=== PATIENT | male | born 1945 | race Caucasian/White ===

== ENCOUNTER → 2017-02-24 | Outpatient (CLI) | payer MEDICARE, BC | END | disposition home or self-care (01) | LOC: LABWHC1 07:31 | PROVIDERS: ATTEND Family Medicine | DX: E29.1 Testicular hypofunction (principal); Z53.9 Procedure and treatment not carried out, unspecified reason ==

== ENCOUNTER → 2017-02-25 | Outpatient (CLI) | payer MEDICARE, BC ==
[2017-02-25 08:41] LABS: CH 28.3; CHCM 33.6; HCT 48.8 % (39.0-53.0); HDW 3.11; HGB 16.6 gm/dL (13.0-17.5); MCH 28.9 pg (25.0-35.0); MCHC 34.1 g/dL (31.0-37.0); MCV 84.7 fL (80.0-100.0); Mean Platelet Volume 7.3; RBC 5.76 m/uL (4.30-5.90); RDW 14.1 % (11.5-15.5); WBC 6.5 k/uL (3.8-10.6)
[2017-02-25 11:33] LABS: ALT 37 U/L (21-72); AST 24 U/L (17-59); Alkaline Phosphatase 70 U/L (38-126); Anion Gap 9 mmol/L; Bilirubin, Delta 0.3 mg/dL (0.0-0.2); Blood Urea Nitrogen 16 mg/dL (9-20); Calcium 8.9 mg/dL (8.4-10.2); Carbon Dioxide 27 mmol/L (22-30); Chloride 105 mmol/L (98-107); Cholesterol 187 mg/dL (<200); Glucose 126 mg/dL (74-99); HDL Cholesterol 47 mg/dL (40-60); Non-African American GFR(MDRD) >60 (>60 ml/min/1.73 sqM); Potassium 4.6 mmol/L (3.5-5.1); Sodium 141 mmol/L (137-145); Total Bilirubin 1.1 mg/dL (0.2-1.3); Triglycerides 151 mg/dL (<150)
[2017-02-25 12:06] LABS: Estradiol 47 pg/mL (5-66)
== END ==
LOC: LABWHC1 08:01
PROVIDERS: ATTEND Family Medicine
DX: E29.1 Testicular hypofunction (principal)
CPT/HCPCS: 36415; 80048; 80061; 80076; 82670; 84153; 84403; 85027

== ENCOUNTER → 2018-04-07 | Outpatient (CLI) | payer MEDICARE, BC ==
[2018-04-07 16:42] LABS: Blood Urea Nitrogen 17 mg/dL (9-20)
--- NOTE | 2018-04-08 09:10 | CT ---
EXAMINATION TYPE: CT chest w con DATE OF EXAM: 04/07/2018 COMPARISON: 03/27/2014 HISTORY: Pulmonary fibrosis CT DLP: 499.1 mGycm, Automated exposure control for dose reduction was used. CONTRAST: Performed injected with 100 mL of Isovue 300. TECHNIQUE: Axial images were obtained at 5 mm thick sections. Reconstructed images are reviewed on [employer] computer in the coronal plane. FINDINGS: Portion of the thyroid visualized is normal. There is a 0.4 cm nodule in the periphery of the right upper lobe. Series 4 image 16. This may be at change from prior study. There are increased linear markings at the periphery of the bilateral lungs compatible pulmonary fibrosis. Findings appear to be increasing from 2014. There is a stable 0.3 cm calcification the periphery of the right lower lobe. Multiple small lymph nodes are present within the mediastinum. There is a 1.1 cm pretracheal lymph n ode present is contains a small amount of peripheral calcification. Additional smaller pretracheal pr esent. No suspicious hilar adenopathy is evident. There may be a subcarinal lymph node measuring 0.9 cm. The ascending aorta diameter at the level of the main pulmonary artery is 3.9 cm. The main pulmo nary artery diameter at the bifurcation is 3.2 cm. Small hiatal hernia may be present. Limited CT sections are obtained through the upper abdomen. Abdomen is essentially unremarkable. Air- filled appendix appears to be adjacent to the liver. This is partially visualized. There is partially visualized cyst on the right mid kidney measuring 1.7 cm and 23 Hounsfield units. IMPRESSIONS: 1. Enlarged pretracheal lymph node with additional shotty lymphadenopathy through the mediastinum. 2. Increasing peripheral lung markings can be compatible with worsening pulmonary fibrosis. 3. There may be a new 0.4 cm nodule periphery right upper lobe.
== END | disposition home or self-care (01) ==
LOC: RADCTMAIN 16:12
PROVIDERS: ATTEND Nurse Practitioner Adult Health
DX: J84.10 Pulmonary fibrosis, unspecified (principal); R59.0 Localized enlarged lymph nodes
CPT/HCPCS: 82565; 84520; 71260; 36415; Q9967

== ENCOUNTER → 2018-12-02 | Outpatient (CLI) | payer MEDICARE, BC | LOC: LABPAT 09:48 | PROVIDERS: ATTEND Orthopaedic Surgery Sports Medicine | DX: Z01.812 Encounter for preprocedural laboratory examination (principal) | CPT/HCPCS: 87070 ==

== ENCOUNTER → 2018-12-09 | Outpatient (CLI) | payer MEDICARE, BC ==
[2018-12-09 09:30] LABS: HCT 48.7 % (39.0-53.0); HGB 15.5 gm/dL (13.0-17.5); MCH 27.4 pg (25.0-35.0); MCHC 31.9 g/dL (31.0-37.0); Mean Platelet Volume 7.1; Platelet Count 178 k/uL (150-450); RBC 5.66 m/uL (4.30-5.90); RDW 13.9 % (11.5-15.5); WBC 6.8 k/uL (3.8-10.6)
[2018-12-09 09:31] LABS: Appearance,Urine Clear (Clear); Bilirubin,Urine Negative (Negative); Blood,Urine Negative (Negative); Color,Urine Yellow; Glucose,Urine (UA) 4+ (Negative); Ketones,Urine Negative (Negative); Leukocyte Esterase,Urine Negative (Negative); Nitrite,Urine Negative (Negative); Protein,Urine Negative (Negative); Specific Gravity,Urine 1.027 (1.001-1.035); Urobilinogen,Urine <2.0 mg/dL (<2.0)
[2018-12-09 09:34] LABS: INR 0.9 (<1.2); Partial Thromboplastin Time 25.5 sec (22.0-30.0); Prothrombin Time 9.9 sec (9.0-12.0)
[2018-12-09 09:59] LABS: ALT 22 U/L (21-72); AST 19 U/L (17-59); Albumin 4.2 g/dL (3.5-5.0); Alkaline Phosphatase 76 U/L (38-126); Anion Gap 4 mmol/L; Blood Urea Nitrogen 18 mg/dL (9-20); Calcium 9.5 mg/dL (8.4-10.2); Carbon Dioxide 31 mmol/L (22-30); Chloride 105 mmol/L (98-107); Glucose 113 mg/dL (74-99); Potassium 5.5 mmol/L (3.5-5.1); Sodium 140 mmol/L (137-145); Total Bilirubin 1.1 mg/dL (0.2-1.3); Total Protein 7.1 g/dL (6.3-8.2)
== END | disposition home or self-care (01) ==
LOC: LABPAT 08:25
PROVIDERS: ATTEND Orthopaedic Surgery Sports Medicine
DX: Z01.818 Encounter for other preprocedural examination (principal); Z01.812 Encounter for preprocedural laboratory examination
CPT/HCPCS: 80053; 81003; 85027; 85610; 85730; 93005

== ENCOUNTER 2018-12-28 08:51 | Inpatient (IN) | payer MEDICARE, BC ==
[~2018-12-28 08:51] MED LIST: ACETAMINOPHEN TAB 500 MG TAB PO ONE; DEXAMETHASONE SOD PHOSPHATE 10 MG/ML 1 ML VIAL IV ONE; HYDROmorphone 0.5 MG/0.5 ML SYRINGE IVP PRN; LIDOCAINE 1% 20 ML VIAL (10MG/ML) FOR IV START INTRADERMA PRN; MELOXICAM 7.5 MG TAB PO ONE; MIDAZOLAM (PF) 2 MG/2 ML VIAL IV PRN; ONDANSETRON 4 MG/2 ML VIAL IVP ONE; SCOPOLAMINE 1.5MG/72HR PATCH TRANSDERM ONE; TRANEXAMIC ACID 1,000 MG in SODIUM CHLORIDE 0.9% 100 ML IVPB ONE; ceFAZolin IN SWFI 2 GM/20 ML SYRINGE IVP ONE
[2018-12-28] MEDS ORDERED: ROPIVACAINE 246.25 MG, EPINEPHrine 0.5 MG, KETOROLAC 30 MG, cloNIDine HCL/PF 80 MCG, WA... MISCELLANE ONE ×5 (09:42)
[2018-12-28] MEDS: LACTATED RINGERS 1,000 ML IV SCH ×3 (11:50→20:55)
[2018-12-28 11:52] LABS: Glucose,Whole Blood 98 mg/dL (75-99)
[2018-12-28] MEDS ORDERED: NALOXONE 0.4 MG/ML 1 ML VIAL IV PRN ×2 (12:46→16:03)
[2018-12-28] MEDS ORDERED: HYDROmorphone 0.5 MG/0.5 ML SYRINGE IVP PRN ×3 (12:46)
[2018-12-28] MEDS ORDERED: HYDROcodone/APAP 5-325MG 1 EACH TAB PO PRN ×2 (12:46)
[2018-12-28] MEDS ORDERED: DIAZEPAM 5 MG TAB PO PRN (12:46)
[2018-12-28] MEDS ORDERED: MAGNESIUM HYDROXIDE 2,400 MG/10 ML CUP PO PRN (12:46)
[2018-12-28] MEDS ORDERED: BISACODYL 10 MG SUPP RECTAL PRN (12:46)
[2018-12-28] MEDS ORDERED: NA PHOS,M-B/NA PHOS,DI-BA 133 ML ENEMA RECTAL PRN (12:46)
[2018-12-28] MEDS ORDERED: ACETAMINOPHEN TAB 325 MG TAB PO PRN (12:46)
[2018-12-28] MEDS ORDERED: ONDANSETRON 4 MG/2 ML VIAL IVP PRN (12:46)
[2018-12-28] MEDS ORDERED: hydrOXYzine PAMOATE 25 MG CAP PO PRN (12:46)
[2018-12-28] MEDS ORDERED: HYDROcodone/APAP 10-325MG 1 EACH TAB PO PRN (12:46)
[2018-12-28] MEDS ORDERED: HYDROcodone/APAP 7.5-325MG 1 EACH TAB PO PRN (12:46)
[2018-12-28] MEDS ORDERED: traMADol 50 MG TAB PO PRN (12:46)
[2018-12-28] MEDS ORDERED: ceFAZolin 3,000 MG in SODIUM CHLORIDE 0.9% IRRIGATIO 3,000 ML IRRIGATION ONE (13:44)
[2018-12-28] MEDS ORDERED: LACTATED RINGERS 1,000 ML IV ONE (14:41)
[2018-12-28] MEDS ORDERED: diphenhydrAMINE 50 MG/ML 1 ML VIAL IVP ONE (15:38)
--- NOTE | 2018-12-28 15:44 | XR ---
EXAMINATION TYPE: XR knee limited RT DATE OF EXAM: 12/28/2018 COMPARISON: None HISTORY: Postop TECHNIQUE: 2 view right knee FINDINGS: Tibial and femoral components of in place. No acute fractures are evident. Soft tissues are normal. IMPRESSION: 1. Normal postoperative right knee. No acute fractures evident post knee replacement.
[2018-12-28] MEDS ORDERED: MORPHINE SULFATE 2 MG/ML SYRINGE IVP PRN (16:03)
[2018-12-28] MEDS ORDERED: diphenhydrAMINE 50 MG/ML 1 ML VIAL IVP PRN (16:03)
[2018-12-28 17:13] VITALS: BMI 30.9
--- NOTE | 2018-12-28 19:09 | OP ---
OPERATIVE REPORT PROCEDURE: 12/28/2018. SURGEON: Tung Westbrook M.D. ELECTRIC POWER LINE EXAMINER: Jesse NOE. PREOPERATIVE DIAGNOSIS: Right knee osteoarthrosis. POSTOPERATIVE DIAGNOSIS: Right knee osteoarthrosis. OPERATION: Right total knee arthroplasty. ANESTHESIA: Spinal with sedation. ESTIMATED BLOOD LOSS: 100 mL. TOURNIQUET TIME: Tourniquet time was 46 minutes at 250 mmHg. COMPLICATIONS: None apparent. DRAINS: None. DISPOSITION: Postanesthesia care unit. INDICATIONS: Jarred is a 73-year-old male with longstanding history of right knee pain. History and physical examination are consist with advanced right knee osteoarthrosis. He has been through a significant nonoperative management up to this point. Further treatment options were discussed and he has decided to go forward with a right total knee arthroplasty. Risks of procedure were discussed with him in detail. These risks include, but are not limited to risk of infection, nerve damage, bleeding, pain, and a small risk of deep vein thrombosis which could lead to fatal pulmonary embolism. There is also risk of loosening of the implant which could require revision operation. The patient understands these risks. All of his questions were answered to his satisfaction. Appropriate informed consent was obtained. The patient was identified in the preoperative holding area. Surgical sites marked by both the patient and myself. He was given 2 g of Ancef IV for prophylactic purposes. He was then transported to the operative suite. He was placed supine on the operative table. Spinal anesthetic was then administered and dosed per the anesthesia without apparent complication. Examination under anesthesia was then performed. The patient was 3-5 degrees shy of full extension. He had 95 degrees of flexion in the medial collateral ligament, lateral collateral ligament. Posterior cruciate ligaments were stable. Tourniquet was then placed high on the right upper thigh well-padded in preparation for surgery. The patient's right lower extremity was then prepped and draped in usual sterile fashion. Standard surgical pause undertaken to ensure that we were operating on the correct site and that appropriate preoperative antibiotics were given. All staff in the room in agreement. We proceeded. The outlines of the patella were marked with a surgical pen. A planned 12 cm vertical incision centered over the patella was marked surgical pen. Leg was then exsanguinated with an Esmarch dressing. The knee was then flexed and tourniquet was inflated to 250 mmHg. Total tourniquet time for the procedure was 46 minutes. Incision was then made with a 10 blade scalpel. Dissection was carried down sharply overlying fascia. Great care was taken to minimize the skin flaps. The knee was then exposed using a standard medial parapatellar approach. A small cuff of quadriceps tendon was left for suturing. He was in a bit of varus preoperatively. A standard medial release was then made. Superficial medial collateral ligament was dissected off the bone around the posterior aspect of the proximal tibia. The medial meniscus was then excised as well. The lateral meniscus was also released anteriorly. The leg was externally rotated. Patella was everted. The knee was flexed. The retractors were then placed to protect the collateral ligaments. I then proceeded to remove the infrapatellar fat pad. This was excised sharply tangentially with fibers of the patellar tendon. I then proceeded to remove peripheral osteophytes. This was done with a rongeur. I then proceeded with distal femoral resection. He did have a small flexion contracture. I planned to take 2 mm extra bone off the distal femur. A planned 11 mm resection was then done. The femoral canal was then entered in midline of the femur approximately 10 mm anterior to the origin of the posterior cruciate ligament. The alexx was then advanced down the center of the femur and placed intramedullary. Based on the preoperative radiographs, the angle between the anatomic and mechanical axis of the femur was approximately 4-5 degrees. The valgus angle distal femoral cutting guide was then set at 4 degrees for the right knee. The distal femoral cutting guide was then advanced over the intramedullary alexx. This was seated firmly against the femur. I then as mentioned planned to take 11 mm off the distal femur. The cutting block was then secured onto the femur with pins. The jig was removed. The distal femoral cut was made through the slot of the block. The pins were then removed. The distal femoral cutting block was removed. The accuracy of the distal femoral cuts was checked with 2 flat bars. I then proceed with femoral sizing. The posterior referencing sizing guide was held firmly against the resected distal surface of the femur. Posterior condyles were resting on the posterior plane of the guide. The sizing stylus was then placed on the anterior femur. The size measured a size 9. I then assessed for femoral rotation. Plan was for 3 degrees of external rotation. Three degrees of external rotation was placed onto the jig. These holes were then marked. I then confirmed the rotation by 3 separate methods. This was done using epicondylar axis as well as Whitesides line and posterior referencing. Deemed that the external rotation was proper. I then went forward with placing the femoral cutting block. This was placed over the previously placed pin holes. The Gurmeet wing was then placed on the anterior slots to ensure that we would not notch the anterior femur with the anterior femoral cut. I then proceeded with the anterior femoral cut. This was flush with the anterior cortex of the femur. The posterior cuts were then made followed by the anterior chamfer cut, and the posterior chamfer cut. The cutting block was then removed. Throughout the resection, the collateral ligaments were protected with retractors. I then placed a trial size 9 femur. It fit very nicely medial to lateral and fit flush with the distal end of the femur. The drill holes were then made. I then proceed with the tibial cut. I planned for a cruciate-retaining knee. The guide was placed and set for varus valgus and for slope. The height was set for approximate 2 mm resection from the medial tibial plateau which was the lower side. I was happy with the alignment alexx resection. The cutting block was then pinned to the proximal tibia. The alignment alexx was removed and the proximal tibia was resected with a reciprocating saw. Again this was done with retractors protecting the collateral ligaments as well as the posterior cruciate ligament. I then proceeded to evaluate the flexion and extension gaps. A 10 mm block was then placed. The flexion-extension gaps were equal. I then proceed resection of posterior osteophytes. Very minimal posterior osteophytes. This was done using a curved osteotome. This resected the posterior osteophytes and posterior capsule stripping was also done off the posterior aspect of the femur. The osteophytes were removed. I then proceeded with resection of the patella. The thickness of patella was measured using the caliper. The thickness was 26 mm. The thickness of the anticipated patellar dome was taken into account. Resection was then performed and confirmed to be equal in 4 quadrants using a caliper. Approximately 14 mm of bone remained after the resection. A 35 x 9 mm standard patellar trial was then placed. The holes were drilled. The trial was then placed. I then proceeded with sizing the tibial plate. A size F tibial plate fit very nicely. I then placed the trial femur, the tibial tray and patellar button. A 10 mm trial tibial insert was also placed. The components fit very nicely. He had full flexion- extension care. The extension and flexion gaps were equal and stable to both varus and valgus stress. The patella tracked appropriately. The tibial tray rotation was then marked with a Bovie. This was externally rotated properly. I then proceeded with tibial preparation. I first drilled the femoral holes and removed the femoral component. The tibial tray was then set for proper external rotation as well as mediolateral placement onto the tibia. It was then pinned into place. I then proceeded with punching the keel. I then decided to proceed with cementing of all of our components. The knee was thoroughly irrigated with sterile saline solution via pulse lavage. The lateral geniculate artery was identified and cauterized. All blood was removed from the bone of the tibia femur and patella with pulse lavage. I then proceed with cementing. Two packs of antibiotic bone cement prepared on the back table by the surgical instrument maker. I then proceed with cementing the tibia first. The cement was impacted into the keel as well as deeply seated into the bone. A second coat of cement was then placed. The tibia was then impacted into place. Excess cement was removed with Fahad's and Joker's. I then proceed with cementing the femoral component. The femoral component was also cemented using standard technique. Excess cement was removed. A 10 mm trial insert was then placed into the knee. It was brought into full extension with a constant axial load placed until the cement had hardened. The patellar component was then cemented. This was held firmly with a compressive device until the cement had dried. When the cement had dried, the knee was taken out of extension. All excess cement was removed from around the prosthesis. I then trialed the knee with a 10 mm insert. The flexion-extension gaps were appropriate. The knee came into full extension. I decided to go forward with the 10 mm cross-linked cruciate-retaining tibial insert. Polyethylene was then placed onto the tibial tray and locked into place. The knee was then reduced. The knee was again further irrigated with sterile saline solution with antibiotic added. The tourniquet was then deflated. The total tourniquet time for the procedure was 46 minutes at 250 mmHg. Final components were Lulu Persona size 9 cruciate-retaining femoral component, a size F tibial tray, a 10 mm medial congruent cruciate-retaining polyethylene insert and a 35 x 9 mm patella. I then proceeded with closure. Again, the knee was thoroughly irrigated. The quadriceps tendon and the medial retinaculum were reapproximated with #2 Ethibond suture. The extensor mechanism was then closed with a running #2 Quill suture. Subcutaneous tissue was then closed with 2-0 Vicryl interrupted suture. The skin was closed with a running 3-0 Quill suture. Dermabond was applied to the incision. Sterile compressive dressing was then applied. All sponge and needle counts were deemed correct prior to closure. The patient tolerated the procedure without apparent complication. He was transferred recovery room in stable. MMODL / IJN: [id number] /
[2018-12-28] MEDS: ceFAZolin IN SWFI 2 GM/20 ML SYRINGE IVP SCH (20:53)
[2018-12-28] MEDS: ASPIRIN 325 MG TAB PO SCH (20:53)
[2018-12-28] MEDS ORDERED: TEMAZEPAM 15 MG CAP PO PRN (21:00)
[2018-12-28] MEDS ORDERED: SENNOSIDES-DOCUSATE SODIUM 1 EACH TAB PO SCH (21:00)
[2018-12-29] MEDS: LACTATED RINGERS 1,000 ML IV SCH ×2 (05:51→09:49)
[2018-12-29] MEDS: ceFAZolin IN SWFI 2 GM/20 ML SYRINGE IVP SCH (05:52)
--- NOTE | 2018-12-29 07:20 | P.PN ---
Progress Note - Text Progress Note Date: 12/29/18 Postoperative day 1 status post right total knee arthroplasty, under spinal anesthesia, and intrathecal morphine given for postoperative analgesia, patient doing well, there is no anesthesia related complications, Patient had no headache, vital signs stable , Assessment and plan= postop day 1 , doing well there is no anesthesia related complication.
--- NOTE | 2018-12-29 07:25 | CONS ---
CONSULTATION DATE OF CONSULTATION: 12/28/2018 REASON FOR CONSULTATION: Medical management requested by Dr. Westbrook. CONSULTATION: This is a pleasant 73-year-old patient of Dr. Wakefiedl out of [place]. The patient has undergone right total knee arthroplasty. Pain is controlled. No nausea or vomiting. Denies any cardiac history. Chronic stable medical conditions include osteoarthritis, GERD, insomnia, and hypertension. Did tolerate his evening meal. Comfortable. No chest pain or shortness of breath. REVIEW OF SYSTEMS: CONSTITUTIONAL: None. HEENT: None. RESPIRATORY: None. CARDIOVASCULAR: None. GASTROINTESTINAL: Occasional heartburn. GENITOURINARY: None. MUSCULOSKELETAL: Arthritic pain in the joints. DERMATOLOGICAL: None. HEMATOLOGIC: None. LYMPHATICS: None. PSYCHIATRY: None. NEUROLOGICAL: Trouble sleeping. PAST MEDICAL HISTORY: Osteoarthritis, GERD, insomnia, hypertension. PAST SURGICAL HISTORY: Bilateral cataracts. SOCIAL HISTORY: The patient smoked in the past. Lives by himself. 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 FAMILY HISTORY: Reviewed, noncontributory to presentation. HOME MEDICATIONS: Invokana 100 mg a day. ALLERGIES: None. PHYSICAL EXAMINATION: On examination, temperature 97.9, pulse 64, respirations 18, blood pressure 99/55, pulse ox 94% on 2 L. GENERAL APPEARANCE: Average built, BMI 30. Sitting up, awake. EYES: Pupils equal. Conjunctivae normal. HENT: External appearance of nose and ears normal. Oral cavity normal. NECK: JVD not raised. Mass not palpable. RESPIRATORY: Effort . Lungs are clear. CARDIOVASCULAR: First and second sounds normal. No edema. ABDOMEN: Soft, nontender. Liver and spleen not palpable. PSYCHIATRY: Alert and oriented x3. Mood and affect normal. EXTREMITIES: Right knee in a dressing. INVESTIGATIONS: Blood work from to 12/09/2018 shows a white count of 6.8, hemoglobin 15.5. Potassium repeat was 4.8 today. ASSESSMENT: 1. Right total knee arthroplasty. 2. Primary osteoarthritis. 3. Gastroesophageal reflux disease. 4. Chronic insomnia. PLAN: The patient is getting aspirin for DVT prophylaxis. Pain control in place. Also getting IV fluids. We will hold off blood pressure medications if blood pressure is still running low. Care was discussed with the patient. Questions were answered. Thank you Dr. Westbrook. MMODL / IJN: [id number] /
[2018-12-29 08:53] VITALS: RESP 14
[2018-12-29] MEDS ORDERED: NON-FORMULARY DRUG (Canagliflozin [Invokana] 100 MG) PO SCH (09:00)
[2018-12-29 09:02] VITALS: BP 112/55; PULSE 76; TEMP 97.7
[2018-12-29] MEDS: ASPIRIN 325 MG TAB PO SCH (09:50)
--- NOTE | 2018-12-29 09:57 | P.DS ---
Providers Date of admission: 12/28/18 10:32 Expected date of discharge: 12/29/18 Attending physician: Tung Westbrook Consults: 12/28/18 12:46 Consult Physician Routine Consulting Provider: Vicente Suarez Consult Reason/Comments: post op medical management Do you want consulting provider notified?: Yes Primary care physician: Jose Wakefield - Discharge Diagnosis(es) (1) Status post total right knee replacement Patient was admitted to the OR on 12/28/2018 to undergo a right total knee arthroplasty. He had failed conservative measures as an outpatient and desired to proceed with elective surgery after given informed consent. He underwent the above procedure which he tolerated well without complication. Postoperative hospital course has remained without complication. On day of discharge he is afebrile, vital signs stable, labs within acceptable ranges, tolerating by mouth meds and diet, voiding without difficulty, positive flatus, denies abdominal pain or calf pain, pain is controlled on oral pain medication and has no new complaints. Wound is benign, neurovascular status is intact, calf is soft and nontender, abdomen soft and nontender. Review of systems is negative for numbness, tingling, fever, chills, chest pain, shortness breath, nausea, vomiting, dizziness, headaches, slurred speech or other Current Visit: Yes Status: Acute Priority: Medium Procedures: Right TKA Patient Condition at Discharge: Good Plan - Discharge Summary Discharge Rx Participant: Yes New Discharge Prescriptions: New Aspirin 325 mg PO BID #60 tab Docusate [Colace] 100 mg PO BID #60 capsule HYDROcodone/APAP 7.5-325MG [[place] 7.5-325] 1 - 2 each PO Q6HR PRN #56 tab PRN Reason: Pain No Action Canagliflozin [Invokana] 100 mg PO DAILY Discharge Medication List Canagliflozin [Invokana] 100 mg PO DAILY 12/20/18 [History] Aspirin 325 mg PO BID #60 tab 12/29/18 [Rx] Docusate [Colace] 100 mg PO BID #60 capsule 12/29/18 [Rx] HYDROcodone/APAP 7.5-325MG [[place] 7.5-325] 1 - 2 each PO Q6HR PRN #56 tab [Rx] Follow up Appointment(s)/Referral(s): [facility], [NON-STAFF] - Tung Westbrook MD [STAFF PHYSICIAN] - 10 Days Activity/Diet/Wound Care/Special Instructions: Keep wound clean and dry Take meds as directed Follow-up with Dr. Westbrook in office Weight bear as tolerated May shower in 3 days if no bleeding Discharge Disposition: HOME WITH HOME HEALTH SERVICES
[2018-12-29 10:07] LABS: Basophils # (A) 0.1 k/uL (0-0.2); Basophils % (A) 1 %; Eosinophils # (A) 0.2 k/uL (0-0.7); Eosinophils % (A) 2 %; HCT 42.7 % (39.0-53.0); HGB 13.7 gm/dL (13.0-17.5); Lymphocytes % (A) 10 %; MCH 27.7 pg (25.0-35.0); MCHC 32.2 g/dL (31.0-37.0); MCV 85.9 fL (80.0-100.0); Mean Platelet Volume 7.1; Monocytes # (A) 0.9 k/uL (0-1.0); Monocytes % (A) 9 %; Neutrophils # (A) 7.8 k/uL (1.3-7.7); Neutrophils % (A) 77 %; Platelet Count 171 k/uL (150-450); RBC 4.97 m/uL (4.30-5.90); RDW 13.9 % (11.5-15.5); WBC 10.1 k/uL (3.8-10.6)
[2018-12-29] MEDS ORDERED: MULTIVITAMINS, THERA 1 EACH TAB PO SCH (12:00)
--- NOTE | 2018-12-30 10:53 | PN ---
PROGRESS NOTE DATE OF SERVICE: 12/29/2018 PRESENTING COMPLAINT: Right knee surgery. INTERVAL HISTORY: Patient is status post right knee surgery. Pain is controlled. No nausea, vomiting. No chest pain. Tolerating a diet. Did work with therapy. REVIEW OF SYSTEMS: Done for constitutional, cardiovascular, GI, pulmonary; relevant findings as above. CURRENT MEDICATIONS: Reviewed. PHYSICAL EXAMINATION: Temperature 97.7, pulse 76, respiration 12, blood pressure 112/55, pulse ox 98% on room air. GENERAL APPEARANCE: Sitting up, comfortable. EYES: Pupils equal, conjunctivae normal. NECK: JVD not raised. Mass not palpable. RESPIRATORY: Effort normal. Lungs are clear. CARDIOVASCULAR: First and second sounds normal, no edema. ABDOMEN: Soft, nontender, liver and spleen not palpable. PSYCHIATRY: Alert and oriented x3. Mood and affect normal. INVESTIGATIONS: White count 10.1, hemoglobin 13.7. ASSESSMENT: 1. Right total knee arthroplasty. 2. Primary osteoarthritis. 3. Gastroesophageal reflux disease. 4. Chronic insomnia. PLAN: Patient is stable. Continue current medication and treatment plan. Patient did have some trouble with urination and had that before. Patient probably has got BPH. Will add Flomax. Patient to follow with the family doctor. MMODL / IJN: [id number] /
== END 2018-12-29 15:48 | disposition home health service (06) | DRG 470 ==
LOC: 2ORMAIN 10:32 → 4SSUR 16:24
PROVIDERS: ADMIT Orthopaedic Surgery Sports Medicine; ATTEND Orthopaedic Surgery Sports Medicine
PROC: 0SRC0J9 Replacement of Right Knee Joint with Synthetic Substitute, Cemented, Open Approach (ICD-10-PCS; principal; 2018-12-28 12:30)
DX: M17.11 Unilateral primary osteoarthritis, right knee (principal); J44.9 Chronic obstructive pulmonary disease, unspecified; K21.9 Gastro-esophageal reflux disease without esophagitis; F51.04 Psychophysiologic insomnia; I10 Essential (primary) hypertension; F41.9 Anxiety disorder, unspecified; R73.03 Prediabetes; Z98.42 Cataract extraction status, left eye; Z98.41 Cataract extraction status, right eye; Z87.891 Personal history of nicotine dependence
CPT/HCPCS: 84132; 85025; 88300

== ENCOUNTER → 2019-10-03 | Outpatient (CLI) | payer MEDICARE, BC ==
[2019-10-03 08:41] LABS: HCT 49.9 % (39.0-53.0); HGB 16.1 gm/dL (13.0-17.5); MCH 27.5 pg (25.0-35.0); MCHC 32.2 g/dL (31.0-37.0); MCV 85.4 fL (80.0-100.0); Mean Platelet Volume 6.9; Platelet Count 236 k/uL (150-450); RBC 5.84 m/uL (4.30-5.90); RDW 13.4 % (11.5-15.5); WBC 7.9 k/uL (3.8-10.6)
[2019-10-03 08:45] LABS: Appearance,Urine Clear (Clear); Bilirubin,Urine Negative (Negative); Blood,Urine Negative (Negative); Color,Urine Yellow; Glucose,Urine (UA) 4+ (Negative); INR 0.9 (<1.2); Ketones,Urine Negative (Negative); Leukocyte Esterase,Urine Negative (Negative); Nitrite,Urine Negative (Negative); Partial Thromboplastin Time 26.8 sec (22.0-30.0); Protein,Urine Negative (Negative); Prothrombin Time 9.7 sec (9.0-12.0); Specific Gravity,Urine 1.021 (1.001-1.035); Urobilinogen,Urine <2.0 mg/dL (<2.0)
[2019-10-03 08:55] LABS: ALT 22 U/L (21-72); AST 23 U/L (17-59); African American GFR (CKD) >90 (>60 ml/min/1.73 sqM); Albumin 4.4 g/dL (3.5-5.0); Alkaline Phosphatase 73 U/L (38-126); Anion Gap 7 mmol/L; Blood Urea Nitrogen 20 mg/dL (9-20); Calcium 9.6 mg/dL (8.4-10.2); Carbon Dioxide 30 mmol/L (22-30); Chloride 103 mmol/L (98-107); Glucose 122 mg/dL (74-99); Non-African American GFR(CKD) 84 (>60 ml/min/1.73 sqM); Potassium 5.5 mmol/L (3.5-5.1); Sodium 140 mmol/L (137-145); Total Bilirubin 1.1 mg/dL (0.2-1.3); Total Protein 7.4 g/dL (6.3-8.2)
== END | disposition home or self-care (01) ==
LOC: LABPAT 07:53
PROVIDERS: ATTEND Orthopaedic Surgery Sports Medicine
DX: Z01.812 Encounter for preprocedural laboratory examination (principal); M17.12 Unilateral primary osteoarthritis, left knee
CPT/HCPCS: 80053; 81003; 85027; 85610; 85730; 87070

== ENCOUNTER 2019-10-11 10:42 | Day surgery (SDC) | payer MEDICARE, BC ==
[~2019-10-11 10:42] MED LIST changes: +GABAPENTIN 300 MG CAP PO ONE; -MIDAZOLAM (PF) 2 MG/2 ML VIAL IV PRN; +MIDAZOLAM 2 MG/2 ML VIAL IV PRN; +Pre Op ABX Message 1 EACH MISC MISCELLANE ONE; +ROPIVACAINE 246.25 MG, EPINEPHrine 0.5 MG, KETOROLAC 30 MG, cloNIDine HCL/PF 80 MCG, WA... MISCELLANE ONE; -ceFAZolin IN SWFI 2 GM/20 ML SYRINGE IVP ONE
[2019-10-11] MEDS: LACTATED RINGERS 1,000 ML IV SCH ×3 (11:17→22:52)
[2019-10-11 12:00] LABS: Glucose,Whole Blood 101 mg/dL (75-99)
[2019-10-11] MEDS ORDERED: MORPHINE SULFATE (PF) 0.3 MG/0.3 ML SYR ONE (12:46)
[2019-10-11] MEDS ORDERED: MIDAZOLAM 2 MG/2 ML VIAL ONE (12:46)
[2019-10-11] MEDS ORDERED: SODIUM CHLORIDE 0.9% 100 ML BAG ONE (12:46)
[2019-10-11] MEDS ORDERED: fentaNYL (PF) 50 MCG/ML 2 ML AMP ONE (12:46)
[2019-10-11] MEDS ORDERED: TRANEXAMIC ACID 1,000 MG/10 ML VIAL ONE (12:46)
[2019-10-11] MEDS ORDERED: PROPOFOL 10 MG/ML 20 ML VIAL IV ONE (12:46)
[2019-10-11] MEDS ORDERED: traMADol 50 MG TAB PO PRN (12:58)
[2019-10-11] MEDS ORDERED: ceFAZolin 3,000 MG in SODIUM CHLORIDE 0.9% IRRIGATIO 3,000 ML IRRIGATION ONE (12:58)
[2019-10-11] MEDS ORDERED: NALOXONE 0.4 MG/ML 1 ML VIAL IV PRN (12:58)
[2019-10-11] MEDS ORDERED: ONDANSETRON 4 MG/2 ML VIAL IVP PRN (12:58)
[2019-10-11] MEDS ORDERED: NA PHOS,M-B/NA PHOS,DI-BA 133 ML ENEMA RECTAL PRN (12:58)
[2019-10-11] MEDS ORDERED: HYDROcodone/APAP 5-325MG 1 EACH TAB PO PRN (12:58)
[2019-10-11] MEDS ORDERED: TEMAZEPAM 15 MG CAP PO PRN (12:58)
[2019-10-11] MEDS ORDERED: hydrOXYzine PAMOATE 25 MG CAP PO PRN (12:58)
[2019-10-11] MEDS ORDERED: MAGNESIUM HYDROXIDE 2,400 MG/10 ML CUP PO PRN (12:58)
[2019-10-11] MEDS ORDERED: HYDROmorphone 0.5 MG/0.5 ML SYRINGE IVP PRN ×3 (12:58)
[2019-10-11] MEDS ORDERED: ACETAMINOPHEN TAB 325 MG TAB PO PRN (12:58)
[2019-10-11] MEDS ORDERED: BISACODYL 10 MG SUPP RECTAL PRN (12:58)
[2019-10-11] MEDS ORDERED: DIAZEPAM 5 MG TAB PO PRN (12:58)
[2019-10-11 15:04] LABS: Glucose,Whole Blood 101 mg/dL (75-99)
--- NOTE | 2019-10-11 15:10 | XR ---
EXAMINATION TYPE: XR knee limited LT DATE OF EXAM: 10/11/2019 CLINICAL HISTORY: Left knee pain and arthritis status post total knee replacement. TECHNIQUE: Portable AP and crosstable lateral views of the left knee are obtained immediately postop eratively. COMPARISON: None FINDINGS: Metallic hardware from total left knee arthroplasty is seen and appears satisfactory in al ignment and position. There is evidence of recent surgery with diffuse subcutaneous gas and soft tis kristen swelling noted. IMPRESSION: METALLIC HARDWARE FROM TOTAL LEFT KNEE ARTHROPLASTY IS SATISFACTORY IN ALIGNMENT.
[2019-10-11 16:44] LABS: Glucose,Whole Blood 117 mg/dL (75-99)
[2019-10-11 20:15] LABS: Glucose,Whole Blood 129 mg/dL (75-99)
[2019-10-11] MEDS ORDERED: SENNOSIDES-DOCUSATE SODIUM 1 EACH TAB PO SCH (21:00)
--- NOTE | 2019-10-11 21:01 | OP ---
OPERATIVE REPORT DATE OF PROCEDURE: 10/11/2019 SURGEON: Tung Westbrook M.D. STREET ENGINEER: Jesse Ro PA-C. PREOPERATIVE DIAGNOSIS: Left knee osteoarthrosis. POSTOPERATIVE DIAGNOSIS: Left knee osteoarthrosis. OPERATION: Left total knee arthroplasty. ANESTHESIA: Spinal with sedation. ESTIMATED BLOOD LOSS: 100 mL. TOURNIQUET: Tourniquet time was 52 minutes at 250 mmHg. COMPLICATIONS: None apparent. DRAINS: None. DISPOSITION: Post-Anesthesia Care Unit. INDICATIONS: Jarred is a very pleasant 74-year-old male with longstanding history of left knee pain. History and physical examination are consistent with advanced left knee osteoarthrosis. He has been through significant nonoperative management up to this point. Further treatment options were discussed. He decided to go forward with left total knee arthroplasty. The risks of the procedure were discussed with him in detail. These risks include but are not limited to risk of infection, nerve damage, bleeding, pain, and a risk of deep vein thrombosis which could lead to fatal pulmonary embolism. There is also a risk of loosening of the implant which could require revision operation. The patient understands these risks. All of his questions were answered to his satisfaction. Appropriate informed consent was obtained. DESCRIPTION OF THE PROCEDURE: The patient was identified in the preoperative holding area. Surgical site was marked by both the patient and myself. He was given 2 grams of Ancef IV for prophylactic purposes. He was then transferred to the operative suite, where he was placed supine on the operating room table. Spinal anesthetic was then administered and dosed per the anesthesia department without apparent complication. Examination under anesthesia was then performed. The patient was 3 to 5 degrees shy of full extension. He had 95 degrees of flexion, and the medial collateral ligament, lateral collateral ligament and posterior cruciate ligaments were stable. Tourniquet was then placed high on the left upper thigh, well padded in preparation for surgery. The patient's left lower extremity was then prepped and draped in the usual sterile fashion. A standard surgical pause was undertaken to ensure that we were operating on the correct site and that appropriate preoperative antibiotics had been given. All staff in the room were in agreement and we proceeded. The outlines of the patella were marked with a surgical pen. A planned 12 cm vertical incision centered over the patella was marked with the surgical pen. The leg was then exsanguinated with an Esmarch dressing. The knee was then flexed and the tourniquet was inflated to 250 mmHg. The total tourniquet time for the procedure was 52 minutes. Incision was then made with a 10-blade scalpel. Dissection was carried down sharply to the overlying fascia. Great care was taken to minimize the skin flaps. The knee was then exposed using a standard medial parapatellar approach. A small cuff of quadriceps tendon was then left for suturing. He was in a bit of varus preoperatively. A standard medial release was then made. Superficial medial collateral ligament was dissected off the bone and around to the posterior aspect of the proximal tibia. The medial meniscus was then excised as well. The lateral meniscus was also released anteriorly. The leg was then externally rotated. The patella was everted. The knee was flexed. The retractors were then placed to protect the collateral ligaments. I then proceeded to remove the infrapatellar fat pad. This was excised sharply tangentially with the fibers of the patellar tendon. I then proceeded to remove the peripheral osteophytes. This was done with a rongeur. I then proceeded with the distal femoral resection. He did have a small flexion contracture. A planned 11 mm resection was then done. The femoral canal was then entered in the midline of the femur approximately 10 mm anterior to the origin of the posterior cruciate ligament. The alexx was then advanced down to the center of the femur and placed intramedullary. Based on the preoperative radiographs, the angle between the anatomic and mechanical axes of the femur was approximately 4 to 5 degrees. The valgus angle of the distal femoral cutting guide was then set at 4 degrees for the left knee. The distal femoral cutting guide was then advanced over the intramedullary alexx. This was seated firmly against the femur. I then, as mentioned, planned to take 11 mm off the distal femur. The cutting block was then secured onto the femur with pins. The jig was removed and the distal femoral cut was made through the slot of the block. The pins were then removed and the distal femoral cutting block was removed. The accuracy of the distal femoral cuts was checked with 2 flat bars. I then proceeded with femoral sizing. The posterior referencing sizing guide was held firmly against the resected distal surface of the femur. The posterior condyles were resting on the posterior plane of the guide. The sizing stylus was then placed onto the anterior femur. The size was measured as a size 8. I then assessed for femoral rotation. The plan was for 3 degrees of external rotation. Three degrees of external rotation was placed onto the jig. These holes were then marked. I then confirmed the rotation by 3 separate methods. This was done using the epicondylar axis as well as Whitesides line and posterior referencing. It was deemed that the external rotation was proper. I then went forward with placing the femoral cutting block. This was placed over the previously placed pin holes. The Gurmeet wing was then placed onto the anterior slots to ensure that we would not notch the anterior femur with the anterior femoral cut. I then proceeded with the anterior femoral cut. This was flush with the anterior cortex of the femur. Posterior cuts were then made followed by the anterior chamfer cut and then the posterior chamfer cut. The cutting block was then removed. Throughout the resection, the collateral ligaments were protected with retractors. I then placed a trial size 8 femur. It fit very nicely medial to lateral and fit flush with the distal end of the femur. The drill holes were then made. I then proceeded with the tibial cut. I planned for a cruciate-retaining knee. The guide was placed and set for varus, valgus and for slope. The height was set for an approximate 2 mm resection from the medial tibial plateau, which was the lower side. I was happy with the alignment and the amount of resection. The cutting block was then pinned to the proximal tibia. The alignment alexx was removed and the proximal tibia was resected with a reciprocating saw. Again this was done with retractors protecting the collateral ligaments as well as the posterior cruciate ligament. I then proceeded to evaluate the flexion and extension gaps. A 10 mm block was then placed. The flexion and extension gaps were equal. I then proceeded with resection of the posterior osteophytes. He had very minimal posterior osteophytes. This was done using a curved osteotome. This resected the posterior osteophytes, and posterior capsule stripping was done off the posterior aspect of the femur. The osteophytes were then removed. I then proceeded with resection of the patella. The thickness of the patella was measured using a caliper. The thickness was 24 mm. Thickness of the anticipated patellar dome was taken into account. Resection was then performed and confirmed to be equal in 4 quadrants using a caliper. Approximately 14 mm of bone remained after the resection. A 35 x 9 standard patellar trial was then placed. The holes were drilled and the trial was then placed. I then proceeded with sizing of the tibial plate. A size F tibial plate fit very nicely. I then placed the trial femur and the tibial tray and the patellar button. A 10 mm trial tibial insert was also placed. The components fit very nicely. He had full extension and flexion. The extension and flexion gaps were equal and stable to both varus and valgus stress. The patella tracked appropriately. Tibial tray rotation was then marked with a Bovie. This was externally rotated properly. I then proceeded with tibial preparation. I first drilled the femoral holes and removed the femoral component. The tibial tray was then set for proper external rotation as well as mediolateral placement onto the tibia. It was then pinned into place. I then proceeded with punching the keel. I then decided to proceed with cementing of all of our components. The knee was thoroughly irrigated with sterile saline solution via pulse lavage. The lateral geniculate artery was identified and cauterized. All blood was removed from the bone of the tibia, femur and patella with pulse lavage. I then proceeded with cementing. Two packs of antibiotic bone cement were prepared on the back table by the pharm tech. I then proceeded with cementing of the tibia first. Cement was impacted into the keel as well as deeply seated into the bone. A second coat of cement was then placed. The tibia was then impacted into place. Excess cement was removed with Fahad's and Joker's. I then proceeded with cementing of the femoral component. The femoral component was also cemented using standard technique. Excess cement was removed. A 10 mm trial insert was then placed into the knee. It was brought into full extension with a constant axial load placed until the cement had hardened. The patellar component was then cemented. This was held firmly with a compressive device until the cement had dried. When the cement had dried, the knee was taken out of extension. All excess cement was removed from around the prosthesis. I then trialed the knee with a 10 mm insert. The flexion and extension gaps were appropriate. The knee was stable. It came into full extension. It was decided to go forward with a 10 mm medial-congruent, cross-linked cruciate-retaining tibial insert. Polyethylene was then placed onto the tibial tray and locked into place. The knee was then reduced. The knee was again further irrigated with sterile saline solution with antibiotic added. The tourniquet was then deflated. Total tourniquet time for the procedure was 52 minutes at 250 mmHg. Final components were a Lulu Persona size 8 cruciate-retaining femoral component, a size F tibial tray, a 10 mm medial-congruent cruciate-retaining polyethylene insert and a 35 x 9 mm patella. I then proceeded with closure. Again the knee was thoroughly irrigated. The quadriceps tendon and the medial retinaculum were reapproximated with a #2 Ethibond suture. The extensor mechanism was then closed with a running #2 Quill suture. Subcutaneous tissues were closed with 2-0 Vicryl interrupted suture. Skin was closed with a running 3-0 Quill suture. Dermabond was applied to the incision. Sterile compressive dressings were then applied. All sponge and needle counts were deemed correct prior to closure. The patient tolerated the procedure without apparent complication. He was transferred to the recovery room in stable condition. MMODL / NIKKIN: [id number] /
[2019-10-11] MEDS: ASPIRIN 325 MG TAB PO SCH (21:43)
[2019-10-12] MEDS: LACTATED RINGERS 1,000 ML IV SCH ×2 (02:59→13:20)
[2019-10-12 07:08] LABS: Glucose,Whole Blood 112 mg/dL (75-99)
--- NOTE | 2019-10-12 07:12 | P.PN ---
Progress Note - Text 10/12 700am 74-year-old male status post total knee replacement with a spinal anesthetic with Duramorph. Postop day 1 patient seen and evaluated for pain control, patient has a VAS of 2, no complains of new nausea vomiting and pruritus this morning. Patient to follow-up with his physician for oral pain medication.
[2019-10-12 07:21] VITALS: BP 106/61; PULSE 72; RESP 15; TEMP 98.3
[2019-10-12] MEDS: HYDROcodone/APAP 10-325MG 1 EACH TAB PO PRN ×2 (08:02→13:38)
[2019-10-12] MEDS: ASPIRIN 325 MG TAB PO SCH (08:03)
[2019-10-12 08:09] LABS: Basophils % (A) 0 %; Eosinophils # (A) 0.1 k/uL (0-0.7); Eosinophils % (A) 1 %; HCT 41.7 % (39.0-53.0); HGB 13.3 gm/dL (13.0-17.5); Lymphocytes # (A) 1.1 k/uL (1.0-4.8); Lymphocytes % (A) 12 %; MCH 27.1 pg (25.0-35.0); Mean Platelet Volume 7.7; Monocytes % (A) 11 %; Neutrophils # (A) 6.8 k/uL (1.3-7.7); Neutrophils % (A) 75 %; Platelet Count 156 k/uL (150-450); RBC 4.91 m/uL (4.30-5.90); RDW 13.6 % (11.5-15.5); WBC 9.1 k/uL (3.8-10.6)
--- NOTE | 2019-10-12 10:21 | P.DS ---
Providers Expected date of discharge: 10/12/19 Attending physician: Tung Westbrook Consults: 10/11/19 12:58 Consult Physician Routine Consulting Provider: Vicente Suarez Consult Reason/Comments: post op medical management Do you want consulting provider notified?: Yes Primary care physician: Jose Wakefield - Discharge Diagnosis(es) (1) Osteoarthritis of left knee Patient was admitted to the OR on 10/11/2019 to undergo a left total knee arthroplasty. He had failed conservative measures as an outpatient and desired to proceed with elective surgery after given informed consent. He underwent the above procedure which he tolerated well without complication. Postoperative hospital course has remained without complication. On day of discharge he is afebrile, vital signs stable, labs within acceptable ranges, tolerating by mouth meds and diet, voiding without difficulty, positive flatus, denies abdominal pain or calf pain, pain is controlled on oral pain medication and has no new complaints. Wound is benign, neurovascular status is intact, calf is soft and nontender, abdomen soft and nontender. Review of systems is negative for numbness, tingling, fever, chills, chest pain, shortness of breath, nausea, vomiting, dizziness, headaches, slurred speech or other. Current Visit: Yes Status: Acute Priority: Medium Procedures: Left TKA Patient Condition at Discharge: Good Plan - Discharge Summary Discharge Rx Participant: No New Discharge Prescriptions: New Aspirin 325 mg PO BID #60 tab Docusate [Colace] 100 mg PO BID #60 capsule HYDROcodone/APAP 7.5-325MG [[place] 7.5-325] 1 - 2 each PO Q6HR PRN #56 tab PRN Reason: Pain No Action Canagliflozin [Invokana] 100 mg PO QAM Oxi-Flex 1 tab PO DAILY Cholecalciferol [Vitamin D3 (25 Mcg = 1000 Iu)] 1 tab PO DAILY Aspirin/Sod Bicarb/Citric Acid [[place] Original Tab Eff] 1 tab PO DIRECTED PRN PRN Reason: GERD Discharge Medication List Canagliflozin [Invokana] 100 mg PO QAM 12/20/18 [History] Aspirin/Sod Bicarb/Citric Acid [[place] Original Tab Eff] 1 tab PO DIRECTED PRN 10/06/19 [History] Cholecalciferol [Vitamin D3 (25 Mcg = 1000 Iu)] 1 tab PO DAILY 10/06/19 [History] Oxi-Flex 1 tab PO DAILY 10/06/19 [History] Aspirin 325 mg PO BID #60 tab 10/12/19 [Rx] Docusate [Colace] 100 mg PO BID #60 capsule 10/12/19 [Rx] HYDROcodone/APAP 7.5-325MG [[place] 7.5-325] 1 - 2 each PO Q6HR PRN #56 tab 10/12/19 [Rx] Follow up Appointment(s)/Referral(s): [facility], [NON-STAFF] - As Needed Tung Westbrook MD [STAFF PHYSICIAN] - 10 Days Activity/Diet/Wound Care/Special Instructions: Keep wound clean and dry Take meds as directed Follow-up with Dr. Westbrook in office Weight bear as tolerated May shower in 3 days if no bleeding Discharge Disposition: HOME WITH HOME HEALTH SERVICES
[2019-10-12] MEDS ORDERED: TAMSULOSIN 0.4 MG CAP.ER.24H PO STA (10:23)
[2019-10-12 11:19] LABS: Glucose,Whole Blood 114 mg/dL (75-99)
--- NOTE | 2019-10-12 21:11 | P.CONS ---
History of Present Illness - Reason for Consult Consult date: 10/12/19 medical management Requesting physician: Tung Westbrook - Chief Complaint left knee surgery - History of Present Illness Consultation: This is a very pleasant 74-year-old patient of Dr. blair from [place]. Patient has undergone a left total knee arthroplasty. Pain is well controlled. No nausea vomiting. Did tolerate her breakfast. No fever no chills. Chronic stable medical conditions include Aida arthritis, GERD, insomnia and hypertension. Patient does morning it urinary retention and had to have a straight catheterization. Patient had a similar presentation on the last time when he had his other knee surgery. Otherwise she is feeling better. Review of systems: GEN.: None EYES: None HEENT: None NECK: None RESPIRATORY: None CARDIOVASCULAR: None GASTROINTESTINAL: GERD GENITOURINARY: Bladder outflow obstruction MUSCULOSKELETAL: Joint pains LYMPHATICS: None HEMATOLOGICAL: None PSYCHIATRY: None NEUROLOGICAL: Some insomnia Past medical history to include: Aida arthritis, GERD, insomnia, hypertension Social history: Patient ex-smoker. Lives alone. Retired. 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 EYES: Pupils equal. Conjunctiva normal. HEENT: External appearance of nose and ears normal, oral cavity grossly normal. NECK: JVD not raised; masses not palpable. HEART: First and second heart sounds are normal; no edema. LUNGS: Respiratory rate normal; clear to auscultation. ABDOMEN: Soft, nontender, liver spleen not palpable, no masses palpable. PSYCH: Alert and oriented x3; mood and affect normal. NEUROLOGICAL: Cranial nerves grossly intact; no facial asymmetry, power and sensation grossly intact. LYMPHATICS: No lymph nodes palpable in the axilla and neck MUSCULOSKELETAL: Evidence of OA in the hands INVESTIGATIONS, reviewed in the clinical context: White count 9.1 hemoglobin 13.3 Assessment: -Left total knee arthroplasty -Primary osteoarthritis -GERD -Chronic insomnia -Bladder outflow obstruction Plan: Patient is always on aspirin for DVT prophylaxis per Dr. Westbrook. Home medications resumed. We'll start the patient on Flomax given a prescription for the same. Patient should follow-up with his PCP. Thank you Dr. Westbrook Past Medical History Past Medical History: Diabetes Mellitus, GERD/Reflux, Osteoarthritis (OA) Additional Past Medical History / Comment(s): A CHILD, HAD A CARDIAC ARREST, TOOK PILLS FROM HIS UNCLE. URINARY FREQUENCY. History of Any Multi-Drug Resistant Organisms: None Reported Past Surgical History: Joint Replacement, Tonsillectomy Additional Past Surgical History / Comment(s): COLONOSCOPY. BILAT CATARACTS RIGHT knee replacement. 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 Past Anesthesia/Blood Transfusion Reactions: No Reported Reaction Past Psychological History: No Psychological Hx Reported Smoking Status: Former smoker Past Alcohol Use History: None Reported Additional Past Alcohol Use History / Comment(s): QUIT SMOKING 2001 Past Drug Use History: None Reported - Past Family History Mother Family Medical History: No Reported History Medications and Allergies Home Medications Medication Instructions Recorded Confirmed Type Canagliflozin [Invokana] 100 mg PO QAM 12/20/18 10/06/19 History Cholecalciferol [Vitamin D3 (25 1 tab PO DAILY 10/06/19 10/06/19 History Mcg = 1000 Iu)] Aspirin 325 mg PO BID #60 tab 10/12/19 Rx Docusate [Colace] 100 mg PO BID #60 capsule 10/12/19 Rx HYDROcodone/APAP 7.5-325MG [[place] 1 - 2 each PO Q6HR PRN #56 tab 10/12/19 Rx 7.5-325] Tamsulosin HCl [Flomax] 0.4 mg PO DAILY #30 capsule 10/12/19 Rx Allergies Allergy/AdvReac Type Severity Reaction Status Date / Time ibuprofen Allergy Rash/Hives Verified 10/06/19 11:13 Physical Exam Vitals: Vital Signs Temp Pulse Pulse Resp BP BP Pulse Ox 10/12/19 07:00 98.3 F 72 15 106/61 98 10/12/19 01:20 98.0 F 74 16 109/64 95 10/12/19 00:10 20 10/11/19 18:55 97.7 F 59 L 16 117/66 97 10/11/19 16:22 72 89/46 10/11/19 16:08 54 L 102/64 10/11/19 15:38 55 L 113/63 10/11/19 15:37 97.4 F L 53 L 15 113/67 97 10/11/19 15:15 55 L 16 109/61 100 10/11/19 15:02 57 L 16 105/62 97 10/11/19 14:47 96.9 F L 57 L 16 105/62 98 10/11/19 11:25 98 F 64 20 144/69 97 Intake and Output 10/11/19 10/12/19 10/12/19 22:59 06:59 14:59 Intake Total 100 1020 1220 Output Total 600 725 Balance -845 387 7924 Intake: IV 100 Oral 1020 1220 Output: Urine 725 Straight 725 Emesis 600 Other: Voiding Method Toilet Toilet Weight 96.162 kg Results CBC & Chem 7: 10/12/19 07:15 10/11/19 11:43 Labs: Abnormal Lab Results - Last 24 Hours (Table) 10/11/19 10/11/19 10/11/19 Range/Units 11:47 15:01 16:41 POC Glucose (mg/dL) 101 H 101 H 117 H (75-99) mg/dL 10/11/19 10/12/19 Range/Units 20:13 06:57 POC Glucose (mg/dL) 129 H 112 H (75-99) mg/dL
[2019-10-13] MEDS ORDERED: MULTIVITAMINS, THERA 1 EACH TAB PO SCH (12:00)
== END 2019-10-12 13:52 | disposition home health service (06) ==
LOC: OR 10:42 → 4SSUR 14:44 → OR 10-12 13:52
PROVIDERS: ATTEND Orthopaedic Surgery Sports Medicine
DX: M17.12 Unilateral primary osteoarthritis, left knee (principal); M21.162 Varus deformity, not elsewhere classified, left knee; R73.03 Prediabetes; F41.1 Generalized anxiety disorder; E29.1 Testicular hypofunction; J44.9 Chronic obstructive pulmonary disease, unspecified; J84.10 Pulmonary fibrosis, unspecified; H81.10 Benign paroxysmal vertigo, unspecified ear; E55.9 Vitamin D deficiency, unspecified; R00.1 Bradycardia, unspecified; G47.00 Insomnia, unspecified; I10 Essential (primary) hypertension; R33.9 Retention of urine, unspecified; N13.9 Obstructive and reflux uropathy, unspecified; K21.9 Gastro-esophageal reflux disease without esophagitis; E11.9 Type 2 diabetes mellitus without complications; I25.2 Old myocardial infarction; E66.3 Overweight; Z68.32 Body mass index [BMI] 32.0-32.9, adult; Z79.899 Other long term (current) drug therapy; Z79.82 Long term (current) use of aspirin; Z79.891 Long term (current) use of opiate analgesic; Z79.84 Long term (current) use of oral hypoglycemic drugs; Z97.3 Presence of spectacles and contact lenses; Z87.891 Personal history of nicotine dependence; Z98.890 Other specified postprocedural states; Z96.651 Presence of right artificial knee joint; Z98.42 Cataract extraction status, left eye; Z98.41 Cataract extraction status, right eye; Z90.89 Acquired absence of other organs; Z87.448 Personal history of other diseases of urinary system; Z88.6 Allergy status to analgesic agent; Z97.2 Presence of dental prosthetic device (complete) (partial); Z82.49 Family history of ischemic heart disease and other diseases of the circulatory system
CPT/HCPCS: 97161; 84132; 85025; 88300; 73560; 27447; C1776; C1713; J2250; J0171; J1100; J0690 ×3; J2405; J2274; J3010; J1885; J2795; J2704; J0735

== ENCOUNTER 2021-09-05 15:44 | Emergency (ER) | payer MEDICARE, BC ==
[2021-09-05 17:15] LABS: Basophils # (A) 0.1 k/uL (0-0.2); Basophils % (A) 1 %; Eosinophils # (A) 0.3 k/uL (0-0.7); Eosinophils % (A) 5 %; HCT 49.3 % (39.0-53.0); HGB 16.1 gm/dL (13.0-17.5); Lymphocytes % (A) 29 %; MCH 27.9 pg (25.0-35.0); MCHC 32.7 g/dL (31.0-37.0); MCV 85.3 fL (80.0-100.0); Mean Platelet Volume 7.8; Monocytes # (A) 0.5 k/uL (0-1.0); Monocytes % (A) 7 %; Neutrophils # (A) 3.9 k/uL (1.3-7.7); Neutrophils % (A) 56 %; Platelet Count 202 k/uL (150-450); RBC 5.78 m/uL (4.30-5.90); RDW 13.6 % (11.5-15.5)
[2021-09-05 17:24] LABS: Partial Thromboplastin Time 25.9 sec (22.0-30.0); Prothrombin Time 10.3 sec (9.0-12.0)
[2021-09-05 17:27] LABS: ALT 24 U/L (4-49); AST 28 U/L (17-59); African American GFR (CKD) >90 (>60 ml/min/1.73 sqM); Albumin 4.3 g/dL (3.5-5.0); Alkaline Phosphatase 79 U/L (38-126); Anion Gap 9 mmol/L; Blood Urea Nitrogen 21 mg/dL (9-20); Calcium 9.1 mg/dL (8.4-10.2); Carbon Dioxide 23 mmol/L (22-30); Chloride 104 mmol/L (98-107); Glucose 141 mg/dL (74-99); Non-African American GFR(CKD) 82 (>60 ml/min/1.73 sqM); Potassium 4.5 mmol/L (3.5-5.1); Sodium 136 mmol/L (137-145); Total Bilirubin 0.7 mg/dL (0.2-1.3); Total Protein 7.2 g/dL (6.3-8.2)
--- NOTE | 2021-09-05 17:47 | XR ---
EXAMINATION TYPE: XR chest 2V DATE OF EXAM: 09/05/2021 COMPARISON: 04/01/2018 HISTORY: 76 years Male. STUDY INDICATION GIVEN: altered mental status . TECHNIQUE: Frontal lateral chest radiographs IMPRESSION: There are scattered patchy and interstitial opacities in both lung bases which were seen on prior ray dy therefore likely representing chronic lung changes such as scarring with or without atelectatic ch anges. An underlying lung infiltrate in both lung bases cannot be entirely excluded due to the extensive leah g base opacities and a multifocal pneumonia cannot be entirely excluded. No pneumothorax or pleural effusion is appreciated. The heart is normal in size. No acute osseous abnormalities seen.
--- NOTE | 2021-09-05 19:31 | CT ---
EXAMINATION TYPE: CT brain wo con DATE OF EXAM: 09/05/2021 COMPARISON: None HISTORY: Left eye blurriness. TECHNIQUE: CT scan of the head performed without contrast CT DLP: 1134.8 mGycm Automated exposure control for dose reduction was used. FINDINGS: No acute intracranial hemorrhage, midline shift or mass effect. Castellanos-white matter differentiation is preserved. Mild prominence of the CSF spaces and ventricles is likely related to brain volume loss. Patchy low-attenuation the deep white matter periventricular region likely on the basis of chronic mi crovascular ischemic changes. There are bilateral basal ganglia calcifications. No acute orbital, osseous or soft tissue abnormalities seen. Paranasal sinuses and mastoid air cells are radiated. Minimal atherosclerotic calcification seen in the intracranial internal carotid arteries. IMPRESSION: 1 NO ACUTE INTRACRANIAL HEMORRHAGE MIDLINE SHIFT OR MASS EFFECT. 2. BRAIN VOLUME LOSS. CHRONIC MICROVASCULAR ISCHEMIC CHANGES SUSPECTED. 3. BILATERAL BASAL GANGLIA CALCIFICATIONS WHICH CARRY A WIDE RANGE OF DIFFERENTIAL DIAGNOSIS, CLINICA L CORRELATION RECOMMENDED.
--- NOTE | 2021-09-05 19:40 | CT ---
EXAMINATION TYPE: CT angio head neck DATE OF EXAM: 09/05/2021 HISTORY: Left eye blurriness. COMPARISON: CT DLP: 411.1 mGycm. Automated Exposure Control for Dose Reduction was Utilized. TECHNIQUE: CTA scan of the neck is performed with IV Contrast, patient injected with 65 mL of Isovue 370, axial images are obtained, coronal and sagittal reformatted images are reviewed. 3D reconstruct ed images are created on an independent workstation and reviewed. FINDINGS: Carotid/Vascular Structures: Minimal atherosclerotic calcifications are seen in the arch of the aorta . Vertebral arteries are patent, the left vertebral artery is dominant. The basilar artery is patent. Both common carotid arteries are patent with mild narrowing at the bifurcation secondary to calcific and soft plaque. Both internal and external carotid arteries are patent. The anterior cerebral arter ies, middle cerebral arteries and posterior cerebral arteries are patent. There is origin of th e right posterior cerebral artery. Other: No acute intracranial hemorrhage, midline shift or mass effect. No cervical lymphadenopathy. T he thyroid gland is heterogeneous. Lung apices demonstrate cystic and fibrotic changes. Included airw ays are patent and symmetric in appearance. Moderate to advanced degenerative changes are seen in the cervical spine. IMPRESSION: No occlusion or significant vascular arterial narrowing appreciated other than minimal calcific and s oft plaque at the carotid bifurcation bilaterally. NASCET criteria was used in interpretation of this exam?
--- NOTE | 2021-09-05 20:37 | ED ---
Eye Problem HPI - General Chief complaint: Eye Problems Stated complaint: L eye blurred vision Time Seen by Provider: 09/05/21 16:13 Source: patient Mode of arrival: ambulatory Limitations: no limitations - History of Present Illness Initial comments: This 76-year-old male presents with a complaint of some left eye blurriness. This occurred yesterday. He states that it has slightly improved. His doctor was out of town so they sent him to see an side panel padder. A call was received from Dr. Cowan from ophthalmology. He states that he went through visual testing in the office in his vision now is 20/400 and his left eye. He feels as though he has a branch retinal artery occlusion. He recommends having a stroke workup. The patient denies any pain. He denies any trauma or injuries. He states that he otherwise feels fine. There's been no problems with sensation, motor skills, speech, ambulation, or other neurologic complaints. He denies any previous similar symptoms. He's never had a stroke or TIA in the past. There is been no chest pain or shortness of breath. No other complaints or modifying factors. - Related Data Home Medications Medication Instructions Recorded Confirmed Aspirin EC [Ecotrin Low Dose] 81 mg PO DAILY 09/05/21 09/05/21 Canagliflozin [Invokana] 100 mg PO DAILY 09/05/21 09/05/21 Glucosamine/Chondr Campo A Sod [Osteo 1 tab PO DAILY 09/05/21 09/05/21 Bi-Flex Caplet] Multivit-Min/FA/Lycopen/Lutein 1 tab PO DAILY 09/05/21 09/05/21 [Centrum Silver Men Tablet] Previous Rx's Medication Instructions Recorded Clopidogrel Bisulfate [Plavix] 75 mg PO DAILY #30 tab 09/05/21 Allergies Allergy/AdvReac Type Severity Reaction Status Date / Time ibuprofen Allergy Rash/Hives Verified 09/05/21 17:04 Review of Systems ROS Statement: Those systems with pertinent positive or pertinent negative responses have been documented in the HPI. ROS Other: All systems not noted in ROS Statement are negative. Past Medical History Past Medical History: Osteoarthritis (OA) History of Any Multi-Drug Resistant Organisms: None Reported Past Surgical History: Joint Replacement Additional Past Surgical History / Comment(s): COLONOSCOPY. BILAT CATARACTS knee replacement Past Anesthesia/Blood Transfusion Reactions: No Reported Reaction Past Psychological History: No Psychological Hx Reported Smoking Status: Never smoker Past Alcohol Use History: None Reported Past Drug Use History: None Reported - Past Family History Mother Family Medical History: No Reported History General Exam - General Exam Comments Initial Comments: GENERAL: The patient is well nourished and well hydrated. VITAL SIGNS: Heart rate, blood pressure, respiratory rate reviewed as recorded in nurse's notes. EYES: Pupils are round and reactive. Extraocular movements are intact. No conjunctival / lid redness or swelling. ENT: No external evidence of injury, swelling, or ecchymosis. Airway is patent. Throat is clear. NECK: Nontender. No swelling or evidence of injury. No subcutaneous emphysema. Trachea is midline. No thyroid mass. HEART: Regular rate and rhythm. Good peripheral pulses. LUNGS/CHEST: Breath sounds clear and equal bilaterally. No rales, rhonchi, or wheezes. No ecchymosis, subcutaneous emphysema, or tenderness. ABDOMEN: Abdomen soft without tenderness. No palpable masses or organomegaly. No peritoneal signs. No abdominal wall swelling or ecchymosis. EXTREMITIES: No extremity tenderness. Normal muscle tone and function. No thoracolumbar tenderness. NEUROLOGIC: Sensation is grossly intact. Cranial nerve exam reveals face is symmetrical, tongue is midline, speech is clear. SKIN: No abrasions or ecchymosis is noted. No induration or masses noted. PSYCHIATRIC: Alert and oriented. Appropriate behavior and judgment. Limitations: no limitations Course Vital Signs 09/05/21 09/05/21 16:04 18:06 Temperature 98.2 F Pulse Rate 64 60 Respiratory 18 17 Rate Blood Pressure 137/74 111/73 O2 Sat by Pulse 94 L 97 Oximetry Medical Decision Making - Medical Decision Making The patient was seen and examined. All diagnostics were reviewed. An IV was established. He is placed on the hop grower. No ectopy is identified. An EKG was done which shows a normal sinus rhythm at a rate of 61. There is no acute ST-T wave changes identified. The MA intervals 154, QRS duration is 76, and the QTC intervals 416. The laboratory was unremarkable. A CTA of the head and neck was done and case is discussed with the radiologist and no acute abnormalities are identified. The noncontrasted CT scan of the brain also is negative. Overall, it is felt as though the patient likely did have an ocular stroke was symptom onset yesterday. He states that the symptoms are somewhat improved currently. It is felt as though he would benefit from admission to the hospital for continuation of workup including echocardiogram, neurology evaluation, MRI scan, etc. The patient adamantly refuses. Risks benefits were discussed in detail. He does take a baby aspirin currently and is instructed to continue with this. Plavix will also be added onto his medication regimen. An outpatient echocardiogram will be ordered. Neurology follow-up recommended as well. Return parameters are discussed. - Lab Data Result diagrams: 09/05/21 16:58 09/05/21 16:58 Lab Results 09/05/21 09/05/21 09/05/21 Range/Units 16:58 16:58 16:58 WBC 7.0 (3.8-10.6) k/uL RBC 5.78 (4.30-5.90) m/uL Hgb 16.1 (13.0-17.5) gm/dL Hct 49.3 (39.0-53.0) % MCV 85.3 (80.0-100.0) fL MCH 27.9 (25.0-35.0) pg MCHC 32.7 (31.0-37.0) g/dL RDW 13.6 (11.5-15.5) % Plt Count 202 (150-450) k/uL MPV 7.8 Neutrophils % 56 % Lymphocytes % 29 % Monocytes % 7 % Eosinophils % 5 % Basophils % 1 % Neutrophils # 3.9 (1.3-7.7) k/uL Lymphocytes # 2.0 (1.0-4.8) k/uL Monocytes # 0.5 (0-1.0) k/uL Eosinophils # 0.3 (0-0.7) k/uL Basophils # 0.1 (0-0.2) k/uL PT 10.3 (9.0-12.0) sec INR 1.0 (<1.2) APTT 25.9 (22.0-30.0) sec Sodium 136 L (137-145) mmol/L Potassium 4.5 (3.5-5.1) mmol/L Chloride 104 (98-107) mmol/L Carbon Dioxide 23 (22-30) mmol/L Anion Gap 9 mmol/L BUN 21 H (9-20) mg/dL Creatinine 0.92 (0.66-1.25) mg/dL Est GFR (CKD-EPI)AfAm >90 (>60 ml/min/1.73 sqM) Est GFR (CKD-EPI)NonAf 82 (>60 ml/min/1.73 sqM) Glucose 141 H (74-99) mg/dL Calcium 9.1 (8.4-10.2) mg/dL Total Bilirubin 0.7 (0.2-1.3) mg/dL AST 28 (17-59) U/L ALT 24 (4-49) U/L Alkaline Phosphatase 79 (38-126) U/L Total Protein 7.2 (6.3-8.2) g/dL Albumin 4.3 (3.5-5.0) g/dL Disposition Clinical Impression: CVA (cerebral vascular accident), Left against medical advice Disposition: Left Against Medical Advice Condition: Fair Instructions (If sedation given, give patient instructions): Stroke (DC) Additional Instructions: They are worried that he may be having an eye stroke. Please return if you c hange your mind about admission. Please obtain the echocardiogram on an outpatient basis as soon as possible. Please continue with the baby aspirin. Please also take the Plavix medication as prescribed. Please follow-up with the neurologist as soon as possible. Prescriptions: Clopidogrel Bisulfate [Plavix] 75 mg PO DAILY #30 tab Is patient prescribed a controlled substance at d/c from ED?: No Referrals: Jose Wakefield MD [Primary Care Provider] - 1-2 days Ayesha Ballard MD [REFERRING] - 1-2 days
[2021-09-05] MEDS ORDERED: CLOPIDOGREL 75 MG TAB PO STA (20:38)
[2021-09-05 20:48] VITALS: BP 120/80; PULSE 56; RESP 18; TEMP 98.3
== END 2021-09-05 20:51 | disposition left against medical advice (07) ==
LOC: EC 15:44
DX: I63.9 Cerebral infarction, unspecified (principal); Z53.29 Procedure and treatment not carried out because of patient's decision for other reasons; Z88.6 Allergy status to analgesic agent
CPT/HCPCS: 36415; 93005; 80053; 85025; 85610; 85730; 71046; 70496; 70450; 70498; 99284; Q9967

== ENCOUNTER → 2021-09-22 | Outpatient (CLI) | payer MEDICARE, BC ==
--- NOTE | 2021-09-23 12:58 | ECHOF ---
Referral Reason:suspected ocular CVA I63.9 MEASUREMENTS -------- HEIGHT: 172.7 cm WEIGHT: 95.3 kg BP: RVIDd: 3.6 cm (< 3.3) IVSd: 1.1 cm (0.6 - 1.1) LVIDd: 4.9 cm (3.9 - 5.3) LVPWd: 1.2 cm (0.6 - 1.1) IVSs: 1.4 cm LVIDs: 3.4 cm LVPWs: 1.6 cm LA Diam: 4.0 cm (2.7 - 3.8) LAESV Index (A-L): 30.30 ml/m Ao Diam: 3.3 cm (2.0 - 3.7) AV Cusp: 1.8 cm (1.5 - 2.6) LA Diam: 3.7 cm (2.7 - 3.8) MV EXCURSION: 18.395 mm (> 18.000) MV EF SLOPE: 65 mm/s (70 - 150) EPSS: 0.6 cm MV E Harinder: 0.52 m/s MV DecT: 272 ms MV A Harinder: 0.85 m/s MV E/A Ratio: 0.61 RAP: 3.00 mmHg RVSP: 35.37 mmHg FINDINGS -------- Sinus rhythm. This was a technically good study. LV size, wall thickness and systolic function are normal, with an EF greater than 55%. The left joshua tricular size is normal. The right ventricle is normal in size. LA is midly dilated 29-33ml/m2. The right atrial size is normal. The aortic valve is trileaflet, and appears structurally normal. No aortic stenosis or regurgitation. Mild mitral regurgitation is present. Mild tricuspid regurgitation present. There is mild pulmonary hypertension. The right ventricular systolic pressure, as measured by Doppler, is 35.37mmHg. There is no pulmonic regurgitation present. The aortic root size is normal. There is no pericardial effusion. CONCLUSIONS -------- 1. LV size, wall thickness and systolic function are normal, with an EF greater than 55%. 2. The left ventricular size is normal. 3. The right ventricle is normal in size. 4. LA is midly dilated 29-33ml/m2. 5. The right atrial size is normal. 6. The aortic valve is trileaflet, and appears structurally normal. No aortic stenosis or regurgitati on. 7. Mild mitral regurgitation is present. 8. Mild tricuspid regurgitation present. 9. There is mild pulmonary hypertension. 10. The right ventricular systolic pressure, as measured by Doppler, is 35.37mmHg. 11. The aortic root size is normal. 12. There is no pericardial effusion. SUBSTATION ELECTRICIAN: Jaycee Lopez RDCS
== END | disposition home or self-care (01) ==
LOC: RADECHMAIN 11:07
PROVIDERS: ATTEND Emergency Medicine
DX: I34.0 Nonrheumatic mitral (valve) insufficiency (principal); I07.1 Rheumatic tricuspid insufficiency
CPT/HCPCS: 93306

== ENCOUNTER → 2022-09-28 | Outpatient (CLI) | payer MEDICARE, BC ==
--- NOTE | 2022-09-28 13:13 | US ---
EXAMINATION TYPE: US duplex aorta DATE OF EXAM: 09/28/2022 COMPARISON: NONE CLINICAL HISTORY: Z13.6 CARDIOVASCULAR DISORD. TECHNIQUE: Multiple sonographic images of the abdominal aorta are obtained. FINDINGS: EXAM MEASUREMENTS: Abdominal Aorta: Proximal: 2.0cm Mid: 2.2cm Distal: 1.5cm Bifurcation: Right:1.1cm Left: 1.3cm SKID ROAD MAN NOTES: No AAA seen on today's ultrasound, limited visualization of proximal aorta due to overlying bowel gas . Aorta is successfully visualized to the bifurcation. IMPRESSION: No greater than 3.0 cm AAA.
--- NOTE | 2022-09-29 08:04 | CT ---
EXAMINATION TYPE: CT chest wo con DATE OF EXAM: 09/28/2022 COMPARISON: 04/07/2018 HISTORY: Pulmonary nodule CT DLP: 651 mGycm, Automated exposure control for dose reduction was used. CONTRAST: Performed injected with 0 mL of Isovue 300. TECHNIQUE: Axial images were obtained at 5 mm thick sections. Reconstructed images are reviewed on [employer] computer in the coronal plane. FINDINGS: Portion of the thyroid visualized is normal. Punctate nodule measuring 0.3 cm posterior and lateral left lung base. Additional small nodules may b e within the anterior left lung base. Series 3 image 37. Punctate nodule in the posterior medial left lung base. Series 3 image 47. Punctate nodule within the periphery of the right lung base. Series 3 image 45. Note is made of some peripheral punctate calcifications likely calcified granuloma. A 0.4 c m nodules in the anterior right midlung. Series 3 image 22. Pulmonary fibrosis is at the lung bases. Increased lung markings compatible with pulmonary fibrosis in the periphery of the lungs extending to wards the apex. In comparison, pulmonary fibrosis appears progressive. The calcified granuloma more present previousl y. Nodules may be new over the interval. There is a 1.2 cm pretracheal lymph node. Small shoddy lymphadenopathies in the superior mediastinum and pretracheal space. No enlarged hilar adenopathy is evident. Some calcified lymphadenopathy may b e in the right hilar region. The ascending aorta diameter at the level of the main pulmonary artery i s 4.0 cm. The main pulmonary artery diameter at the bifurcation is 3.4 cm. While coronary artery marsha cification is present. Small hiatal hernia is present. Limited CT sections are obtained through the upper abdomen. Right cortical renal cysts is evident. Ti ny cortical renal cyst is on the posterior left mid kidney. IMPRESSIONS: 1. Progression of pulmonary fibrosis. 2. Interval development of small pulmonary nodules. Reevaluation in 6 months is recommended.
== END | disposition home or self-care (01) ==
LOC: RADCTMAIN 09:41
PROVIDERS: ATTEND Family Medicine
DX: Z13.6 Encounter for screening for cardiovascular disorders (principal); J84.10 Pulmonary fibrosis, unspecified; R91.8 Other nonspecific abnormal finding of lung field
CPT/HCPCS: 71250; 93979

== ENCOUNTER → 2023-03-02 | Outpatient (CLI) | payer MEDICARE, BC ==
--- NOTE | 2023-03-02 11:40 | CT ---
EXAMINATION TYPE: CT chest wo con DATE OF EXAM: 03/02/2023 COMPARISON: 09/28/2022 HISTORY: Abnormal lung findings. CT DLP: 561 mGycm. Automated Exposure Control for Dose Reduction was Utilized. TECHNIQUE: CT scan of the thorax is performed without IV contrast. FINDINGS: LUNGS: There is diffuse interlobular septal thickening with honeycombing in the periphery and lower l obe both lungs compatible with advanced interstitial pulmonary fibrosis. Findings are suggestive of U IP type. Calcified granulomas lower lobe are again noted and a benign appearance. There is no pneumothorax or pleural effusion. No focal bony. Additional subpleural nodule measuring 3 mm left upper lobe image 27 similar to prior exam. Additional previously noted punctate sub-5 mm nod ules are stable. MEDIASTINUM: Lack of IV contrast is noted to limit evaluation for mediastinal and especially hilar ad enopathy. There is stable borderline pretracheal\mediastinal lymphadenopathy demonstrating no signifi cant interval change. Calcification within the lymph nodes suggests benign. There are borderline lymp h nodes again noted adjacent to the esophagus which is stable. Coronary artery calcification noted. T here is calcification of the aortic valve and atherosclerotic change of the aorta. OTHER: Simple appearing cyst involving the upper pole exophytic anterior cortex right kidney. Hypertr ophic and degenerative change of the spine. Small hiatal hernia. Low-attenuation liver suggestive of fatty infiltration. IMPRESSION: 1. 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 2. Stable subcentimeter pulmonary nodules. 3. Stable borderline adenopathy. 4. Small hiatal hernia with mild wall thickening esophagus and adjacent borderline adenopathy. Recomm end EGD.
== END | disposition home or self-care (01) ==
LOC: RADCTMAIN 10:45
PROVIDERS: ATTEND Family Medicine
DX: J84.10 Pulmonary fibrosis, unspecified (principal); K22.89 Other specified disease of esophagus; K44.9 Diaphragmatic hernia without obstruction or gangrene; R91.8 Other nonspecific abnormal finding of lung field; R59.0 Localized enlarged lymph nodes
CPT/HCPCS: 71250

== ENCOUNTER → 2024-03-29 | Outpatient (CLI) | payer MEDICARE, BC ==
--- NOTE | 2024-03-29 11:51 | CT ---
EXAMINATION TYPE: CT brain wo con DATE OF EXAM: 03/29/2024 COMPARISON: 09/05/2021 HISTORY: 78-year-old male R41.3, other amnesia TECHNIQUE: Examination was done in axial plane without intravenous contrast. Coronal and sagittal r econstructions performed. CT DLP: 1171 mGycm Automated exposure control for dose reduction was used. FINDINGS: Prominent motion and calvarial artifacts especially along the skull base. Allowing for these limitations, there is no evidence of acute intracranial hemorrhage, acute ischemi c changes, mass, mass-effect, or extra-axial fluid collection. There is no effacement of cerebral wing lci or basal subarachnoid cisterns. There is no hydrocephalus. There is no midline shift. Castellanos-whi te matter distinction is preserved. Redemonstrated moderate patchy white matter hypodensities in both cerebral hemispheres and bilateral benign basal ganglionic calcifications. Prostatic calcifications of the carotid siphons Slight leftward nasal septal deviation. Visualized paranasal sinuses and mastoid air cells appear pne umatized. IMPRESSION: 1. Allowing for motion, calvarial, skull base artifact, no acute intracranial abnormality seen. 2. Similar moderate patchy burden of chronic small vessel ischemic disease.
== END | disposition home or self-care (01) ==
LOC: RADCTMAIN 10:50
PROVIDERS: ATTEND Family Medicine
DX: I67.82 Cerebral ischemia (principal)
CPT/HCPCS: 70450

== ENCOUNTER → 2025-03-08 | Outpatient (CLI) | payer MEDICARE, BC ==
--- NOTE | 2025-03-08 09:25 | US ---
EXAMINATION TYPE: US venous doppler duplex LE RT DATE OF EXAM: 03/08/2025 9:11 AM COMPARISON: Right lower extremity venous ultrasound December 15, 2021 CLINICAL INDICATION: Male, 79 years old with history of RIGHT R60.0 LOCALIZED EDEMA; Right lower leg swelling x couple weeks TECHNIQUE: The lower extremity deep venous system is examined utilizing real time linear array sonog cody with graded compression, color doppler sonography, and spectral doppler. SIDE PERFORMED: Right FINDINGS: VESSELS IMAGED: Common Femoral Vein Deep Femoral Vein Greater Saphenous Vein * Femoral Vein Popliteal Vein Small Saphenous Vein * Proximal Calf Veins (* superficial vessels) Right Leg: Positive for DVT in PTV's IMPRESSION: Acute DVT is present in the posterior tibial veins below the level of the right knee. [facility], , 03/08/2025 9:23 AM
== END | disposition home or self-care (01) ==
LOC: RADUSWWP 08:47
PROVIDERS: ATTEND Emergency Medicine
DX: I82.441 Acute embolism and thrombosis of right tibial vein (principal)